=== PATIENT | female | born 1965 | race Caucasian/White ===

== ENCOUNTER 2017-04-02 10:25 | Emergency (ER) | payer MEDICAID ==
--- NOTE | 2017-04-02 11:13 | EDPHY ---
General Narrative: CHIEF COMPLAINT: Alcohol, anxiety, depression, suicidal ideation HISTORY OF PRESENT ILLNESS: Patient complains of alcohol abuse and dependency. She says "I am feeling hopeless and depressed and I can't keep going on like this." She says that she goes on binge drinking of 2+ bottles of wine per day every 3-4 days. When she does so she it feels depressed, head full towards others and more suicidal. She says she thinks about cutting her wrist and hanging herself but does not think she would do so. She denies suicidal ideation at this time. She admits to 1 bottle of wine intake last night and 1 drink of alcohol this morning. No formal psychiatric evaluation. She does have a counselor for her anxiety. Her mother is at bedside and says that the patient does express suicidal ideation her many times. She feels it is alcohol related most the time. No other associated complaints or modifying factors. PSYCHIATRIC DIAGNOSES: Anxiety, alcohol abuse PRIOR PSYCHIATRIC EVALUATIONS: None M1/DETAINER: 11:00 a.m. April 02, [address] Dunn REVIEW OF SYSTEMS: Ten systems reviewed and are negative unless otherwise noted in the HPI EXAMINATION General Appearance: Alert, no distress, anxious. Odor of alcohol about her Head: normocephalic, atraumatic Eyes: Pupils equal and round, no conjunctival pallor or injection ENT, Mouth: Mucous membranes moist Neck: Normal inspection, supple, non-tender Respiratory: Lungs are clear to auscultation. No wheezing rhonchi or crackles Cardiovascular: Regular rate and rhythm. No murmur Gastrointestinal: Abdomen is soft and nontender Back: non-tender, no bony abnormalities Neurological: GCS 15. Cranial nerves 2-12 grossly intact. No tremor. A&O, nonfocal, normal gait. Strength symmetric in the limbs Skin: Warm and dry, no rash. No petechiae purpura Extremities: Nontender, no pedal edema Psychiatric: Depressed mood. Admits to occasional thoughts of suicide by cutting or hanging. Denies intent or current thoughts of such DIFFERENTIAL DIAGNOSES: Including but not limited to alcohol intoxication, alcohol abuse, depression, suicidal ideation MDM: 11:04 a.m. Alcoholic with frequent anxiety, worsening depression and intermittent thoughts of suicidal ideation. Suspected this may be alcohol related, the patient does admit to having suicidal ideation with intermittent thoughts of cutting her arms and hanging herself. She denies intent. She does appear to be acutely intoxicated. Mother corroborates the symptoms and says that she has downplaying the severity of this. The patient does admit to feeling hopeless and depressed. I have filled out an M1 Dr. Dunn has signed this. 12:00 p.m. Laboratories thus far are negative. Toxicology pending. 12:30 p.m. Patient has been medically cleared, but her alcohol level is too high for her to be evaluated. She will need to wait in the emergency department for evaluation when her alcohol level decreases. 2:30 p.m. Patient resting comfortably. Still awaiting sobriety for evaluation. 4:00 p.m. Patient resting comfortably. Still waiting for blood alcohol level to be low enough for evaluation 5:00 p.m. At this time I have discussed the case with Dr. Mariano. He will assume care the patient. She is pending mental evaluation. Please see his note for final disposition. SUPERVISION: Patient was independently examined, but I discussed the case with my secondary supervising physician Dr. Dunn ([facility]) Medical Decision Making: PHYSICIAN DOCUMENTATION: The patient was evaluated and managed by the Physician Veneer Manufacturer. My co- signature indicates that I have reviewed this chart and I agree with the findings and plan of care as documented. I am the secondary supervising physician. (Matteo Dunn) Patient has remained stable on my shift. She is awaiting sobriety for mental health evaluation. (Siddhartha Mariano) 2300 care assumed by me from Dr. Mariano pending mental health evaluation. 2345 patient has been seen by mental health biofuels plant superintendent. Patient is now sober. She denies suicidal ideation intent or plan. She is bud for safety. She is interested in help for her alcohol use. Resource have been provided. Will send her home with a Librium prepack. Mother is happy to take her home. She will return for any concerns. (Antonio Linder) - Objective Vital Signs: Initial Vital Signs Temperature (C) 36.6 C 04/02/17 10:45 Heart Rate 74 04/02/17 10:45 Respiratory Rate 18 04/02/17 10:45 Blood Pressure 149/91 H 04/02/17 10:45 O2 Sat (%) 94 04/02/17 10:45 O2 Delivery Mode Room Air Allergies/Adverse Reactions: No Known Allergies Allergy (Unverified 10/31/12 10:37) Home Medications: Medication Instructions Recorded Miscellaneous Medical Supply [NO 1 ea MISC AD 10/31/12 HOME MEDS] Amoxicillin/Clavulanate Pot 875 mg PO BID #10 tab 11/12/12 [Augmentin 875 mg tab] Laboratory Results: Laboratory Results 04/02/17 10:45 04/02/17 10:45 Departure - Departure Disposition: Home, Routine, Self-Care Clinical Impression: Suicidal ideation, Alcohol intoxication Condition: Good Instructions: Alcohol Withdrawal (ED), Alcohol Intoxication (ED), Chlordiazepoxide (By mouth) Additional Instructions: Follow up with outpatient alcohol resources provided by the mental health provider. Return to the emergency department for increasing withdrawal symptoms, fevers, chills, thoughts of suicide, or any other concerns. Referrals: NONE *PRIMARY CARE P,. [Primary Care Provider] - As per Instructions
[2017-04-02 11:21] LABS: PLATELET COUNT 212 10^3/uL (150-400)
[2017-04-02 23:29] VITALS: BP 92/58; PULSE 67; RESP 15; TEMP 98.6; O2SAT 96
[2017-04-03] MEDS ORDERED: CHLORDIAZEPOXIDE 25MG PREPK#6 BTL TAKEHOME ONE (00:08)
== END 2017-04-03 00:22 | disposition home or self-care (01) ==
DX: R45.851 Suicidal ideations (principal); F10.129 Alcohol abuse with intoxication, unspecified
CPT/HCPCS: 80305; G0480